=== PATIENT | female | born 1955 | race Caucasian/White ===

== ENCOUNTER 2017-02-03 07:48 | Inpatient (IN) | payer BC ==
[2017-02-03] MEDS ORDERED: Ondansetron INJ* 2 MG/ML VIAL IV PRN (18:21)
[2017-02-03] MEDS: NS 0.9% w/ 20 Meq KCL 1000 ML* 1,000 ML IV SCH ×2 (18:47→20:05)
[2017-02-03 19:00] LABS: Hematocrit 44 % (35-47); Hemoglobin 14.7 g/dl (12.0-16.0); Mean Corpuscular HGB Conc 34 g/dl (31-36); Mean Corpuscular Hemoglobin 31 pg (27-31); Mean Corpuscular Volume 92 fL (80-97); Mean Platelet Volume 9 um3 (7.4-10.4); Red Blood Count 4.77 10^6/ul (4.0-5.4); Red Cell Distribution Width 12 % (10.5-15); White Blood Count 8.1 10^3/ul (3.5-10.8)
[2017-02-03 19:04] LABS: Albumin 3.7 g/dL (3.2-5.2); BUN/Creatinine Ratio 11.4 (8-20); C Reactive Protein 128.39 mg/L (< 5.00); Calcium 9.3 mg/dL (8.6-10.3); EGFR African American 110.1 (>60); EGFR Non-African American 85.6 (>60); Globulin 3.1 g/dL (2-4); Magnesium 2.1 mg/dL (1.9-2.7); Phosphorus 2.1 mg/dL (2.5-5.0); Total Bilirubin 0.3 mg/dL (0.2-1.0); Total Protein 6.8 g/dL (6.4-8.9)
[2017-02-03] MEDS: Ziprasidone * 20 MG CAP (generic Geodon) PO SCH (20:59)
[2017-02-03] MEDS: lamoTRIgine TAB(*) 100 MG PO SCH (20:59)
[2017-02-03] MEDS: Cetirizine* 10 MG TAB PO SCH (20:59)
[2017-02-03] MEDS: Liothyronine TAB* 5 MCG PO SCH (20:59)
[2017-02-04] MEDS: NS 0.9% w/ 40 Meq KCL 1000 ML* 1,000 ML IV SCH ×4 (01:19→19:16)
--- NOTE | 2017-02-04 02:18 | HP ---
HISTORY AND PHYSICAL: DATE OF ADMISSION: 02/03/17 HISTORY OF PRESENT ILLNESS: Angie Hernandez is a 61-year-old woman admitted with nausea, vomiting, diarrhea, probable viral gastroenteritis with weakness, and inability to take her usual medications. The patient was in her usual state of health until about 48 hours ago when she developed diarrhea and nausea. Yesterday morning, she started to vomit. She vomited about 4 times. She had tried to drink Gatorade, but it made her throw up. She has been drinking diet coke, but it has only had about 16 ounces total. She has only eaten about 5 saltine crackers today. She feels extremely weak. She feels similar to how she felt when she was admitted with a similar illness in 2008. She has not been urinating much. She has been having liquid stools about every half hour. At first they were brown, now they are green. She has abdominal pain, which she rates at 3/10 in the lower abdomen. She has been unable to keep down her medications except for her thyroid medication. She is being admitted at this time. PAST MEDICAL HISTORY: Significant for the following medical problems: 1. Thyroid disease. She had lymphocytic thyroiditis following childbirth in 1989. At that time, she had carpal tunnel syndrome and depression , which resolved. In 1994, she developed Graves disease while on lithium for bipolar illness. She was treated with radioactive iodine after which she developed hypothyroidism. She is on replacement therapy with Synthroid and liothyronine. 2. History of bipolar disorder starting with depression on 1997 after going off control pills. She then had a severe depression treated with ECT. She had recurrent ECT treatments in 1995 and in 2006. She has been diagnosed as having bipolar type 2 disorder without psychotic features, which is treated with medications as noted below. Dr. Jordan is her psychiatrist. She has been able to titrate off some of her medications recently. 3. History of asthma, which has been in remission since she has gone on allergy shots. 4. Allergic rhinitis, for which she is on immunotherapy. 5. History of low B12 level. PAST SURGICAL HISTORY: 1. Spigelian hernia repair x4. 2. Inguinal hernia repair x1. 3. Tonsillectomy. 4. Basal cell cancer excised from the neck. 5. D and C. 6. . CURRENT MEDICATIONS: 1. Ziprasidone 60 mg in the evening and 20 mg in the morning. 2. Lamictal 100 mg 3 tablets daily; 1 in the morning and 2 at night. 3. Synthroid 125 mcg daily, SIRENA. 4. Liothyronine 5 mcg twice daily. 6. Zyrtec 10 mg at bedtime. 7. Centrum silver 1 tablet every day. 8. Wellbutrin XL 150 mg 24-hour tablet extended release 3 tablets every day. ALLERGIES: AUGMENTIN caused facial swelling and rash, BIAXIN caused rash, PARNATE caused orthostatic blood pressure, and QUINOLONES caused confusion. FAMILY HISTORY: Positive for thyroid disease, bipolar disease, asthma, depression, and osteoporosis. SOCIAL AND PERSONAL HISTORY: The patient is . She lives alone. 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 She has an adult daughter who lives in [facility]. REVIEW OF SYSTEMS: General: She had been feeling quite well until the present illness. She had been away on vacation until 2 days before she got sick visiting her mother in [place]. With the present illness, she has been unable to eat much. She has lost a few pounds. She denied fevers, but has not taken her temperature. She has not slept well. Skin: Negative. HEENT: Negative. Nodes: Negative. Heme: Negative. Breast: History of galactorrhea in the past, not recent. Endocrine: See above. Respiratory: See above. Cardiovascular: Questionable history of mitral valve prolapse. GI: See above. : See above. S[employer]IOR [employer]OR [employer]: She is menopausal for the past approximately 10 years. Musculoskeletal: Negative. Neurologic: Generally weak. Psychiatric: See above. PHYSICAL EXAMINATION VITAL SIGNS: Blood pressure 100/60, pulse 60, respirations 16, and temperature 97.9. Orthostatic blood pressures were done and she did not have an orthostatic drop, 100/60 sitting, 100/70 standing, and 104/60 standing after 2 minutes. GENERAL: She is a middle-aged woman, well developed, well nourished, appearing weak and uncomfortable. SKIN: Clammy and cool. HEENT: Atraumatic, normocephalic. Mouth and pharynx shows slightly dry mucous membranes. NECK: Supple. Neck without thyromegaly. CHEST: Clear. HEART: Normal S1, S2. There are no murmurs, gallops, or rubs. ABDOMEN: Soft with mild bilateral lower quadrant tenderness without rebound or guarding. Bowel sounds are hyperactive. EXTREMITIES: Without cyanosis, clubbing, or edema. NEUROLOGIC: Without gross focal or lateralizing signs. DIAGNOSTIC STUDIES/LAB DATA: CBC: WBC 8.1; H and H 14.7/44; MCV 92; and PLT 192,000. Chemistries: Sodium 136, potassium 3.0, chloride 100, CO2 27, BUN/ creatinine 8/0.70, magnesium 2.1, and phosphorus slightly low at 2.1. Rest of the comprehensive metabolic panel was normal. Procalcitonin normal at 0.1. C- reactive protein elevated at 128.39. IMPRESSION: The patient with volume depletion, hypokalemia due to viral gastroenteritis. I believe she needs IV fluids. She will be a full code. Her labs will be followed. Her CRP should come down. I do not think she has got a bacterial infection, but this is quite a high CRP. I will supplement her potassium. I advanced her diet as tolerated. Labs are ordered for the morning. I do not believe she needs DVT prophylaxis and shall be ambulatory and hopefully go home tomorrow once she is rehydrated. [id number]/CPS #: [id number] [facility]
[2017-02-04] MEDS: Levothyroxine TAB* 125 MCG TAB PO SCH (05:28)
[2017-02-04 05:40] LABS: Hematocrit 36 % (35-47); Hemoglobin 12.1 g/dl (12.0-16.0); Mean Corpuscular HGB Conc 34 g/dl (31-36); Mean Corpuscular Hemoglobin 31 pg (27-31); Mean Corpuscular Volume 93 fL (80-97); Mean Platelet Volume 9 um3 (7.4-10.4); Red Blood Count 3.87 10^6/ul (4.0-5.4); Red Cell Distribution Width 13 % (10.5-15); White Blood Count 6.6 10^3/ul (3.5-10.8)
[2017-02-04 05:53] LABS: BUN/Creatinine Ratio 13.8 (8-20); C Reactive Protein 73.63 mg/L (< 5.00); Calcium 7.8 mg/dL (8.6-10.3); EGFR African American 136.8 (>60); EGFR Non-African American 106.4 (>60); Potassium 3.5 mmol/L (3.5-5.0)
[2017-02-04] MEDS ORDERED: NS 0.9% 250 ML* 250 ML IV ONE (06:00)
[2017-02-04] MEDS: BuPROPion XL* 150 MG TAB.XL PO SCH (08:52)
[2017-02-04] MEDS: lamoTRIgine TAB(*) 100 MG PO SCH ×2 (08:52→20:21)
[2017-02-04] MEDS: Ziprasidone * 20 MG CAP (generic Geodon) PO SCH ×2 (08:52→20:21)
[2017-02-04] MEDS: Liothyronine TAB* 5 MCG PO SCH ×2 (08:52→20:20)
--- NOTE | 2017-02-04 12:24 | PN ---
Subjective - Subjective Reason for Note: Progress Note History: I reviewed the history of her presentation with Dr. Karis Mathews when she signed out. I also discussed it with the patient. She has nausea, vomiting and diarrhea. She works at the [employer] and hence may have contracted gastroenteritis there. She has no history of recent travel or doubtful diet. Today she continues to be hypotensive, has some nausea, but no vomiting. She has had x 4 liquid bowel movements. She feels she is improving but is not yet fully recovered. Active Problems: Active Problems Gastroenteritis (Acute) K52.9 Asthma (Chronic) J45.909 Bipolar affective disorder (Chronic) Hypothyroidism following radioiodine therapy (Chronic) E89.0 Current Medications: Current Medications Bupropion HCl (Wellbutrin Xl *) 450 mg PO DAILY [facility] Last Admin: 02/04/17 08:52 Dose: 450 mg Cetirizine HCl (Zyrtec*) 10 mg PO BEDTIME [facility] Last Admin: 02/03/17 20:59 Dose: 10 mg Potassium Chloride/Sodium Chloride (Ns 0.9% W/ 40 Meq Kcl 1000 Ml*) 1,000 mls @ 150 mls/hr IV PER RATE [facility] Last Admin: 02/04/17 08:52 Dose: 150 mls/hr Lamotrigine (Lamictal Tab(*)) 100 mg PO QAM [facility] Last Admin: 02/04/17 08:52 Dose: 100 mg Lamotrigine (Lamictal Tab(*)) 200 mg PO 2100 [facility] Last Admin: 02/03/17 20:59 Dose: 200 mg Levothyroxine Sodium (Synthroid Tab*) 125 mcg PO DAILY@0600 [facility] Last Admin: 02/04/17 05:28 Dose: 125 mcg Liothyronine Sodium (Cytomel Tab*) 5 mcg PO BID [facility] Last Admin: 02/04/17 08:52 Dose: 5 mcg Ondansetron HCl (Zofran Inj*) 4 mg IV Q4H PRN PRN Reason: NAUSEA Ziprasidone (Geodon (Generic) *) 20 mg PO DAILY [facility] Last Admin: 02/04/17 08:52 Dose: 20 mg Ziprasidone (Geodon (Generic) *) 60 mg PO BEDTIME [facility] Last Admin: 02/03/17 20:59 Dose: 60 mg - Review of Systems Constitutional Symptoms: No: Fever, Night Sweats Dermatology: Rash: No Eyes: Negative: Change in Vision Pulmonary: Negative: Cough, Sputum, Respiratory Distress, Shortness of Breath Cardiology: Negative: Chest Pain, Shortness of Breath, Palpitations, Swelling of Ankles Gastroenterology: Positive: Abdominal Pain - crampy lower, Nausea, Anorexia, Diarrhea Negative: Vomiting Neurology: Negative: Headache, Change in Vision Home Medications: Home Medications Medication Instructions Recorded Confirmed Type Geodon CAP* 20 mg PO DAILY 06/21/13 02/03/17 History Lamictal TAB(*) 100 mg PO DAILY 06/21/13 02/03/17 History Synthroid 125 mcg PO DAILY 06/21/13 02/03/17 History Wellbutrin TAB* 450 mg PO DAILY 06/21/13 02/03/17 History Cetirizine* [ZyrTEC 10 MG TAB*] 10 mg PO DAILY 02/03/17 02/03/17 History Liothyronine TAB* [Cytomel TAB*] 5 mcg PO BID 02/03/17 02/03/17 History Multiple Vitamins W/ Minerals 1 tab PO DAILY 02/03/17 02/03/17 History [Centrum] Ziprasidone HCl [Geodon] 60 mg PO BEDTIME 02/03/17 02/03/17 History lamoTRIgine TAB(*) [LaMICtal 200 mg PO BEDTIME 02/03/17 02/03/17 History TAB(*)] Allergies: Allergies Allergy/AdvReac Type Severity Reaction Status Date / Time Amoxicillin [From Augmentin] Allergy Rash Verified 02/03/17 18:19 Clarithromycin [From Biaxin] Allergy Rash Verified 02/03/17 18:19 Clavulanic Acid Allergy Rash Verified 02/03/17 18:19 [From Augmentin] Levofloxacin [From Levaquin] Allergy Altered Verified 02/03/17 18:19 Mental Status Objective - Vital Signs Vital Signs: Vital Signs 02/03/17 02/03/17 02/03/17 18:09 23:02 23:19 Temperature 98.2 F 98.4 F Pulse Rate 88 75 Respiratory 16 20 Rate Blood Pressure 111/68 81/42 113/62 (mmHg) O2 Sat by Pulse 100 98 Oximetry 02/04/17 02/04/17 02/04/17 04:34 04:51 07:15 Temperature 98.1 F 97.1 F Pulse Rate 79 81 Respiratory 18 Rate Blood Pressure 87/60 84/46 78/49 (mmHg) O2 Sat by Pulse 98 97 Oximetry 02/04/17 07:33 Temperature Pulse Rate 83 Respiratory 16 Rate Blood Pressure 93/56 (mmHg) O2 Sat by Pulse Oximetry - Intake and Output Intake and Output: Intake & Output 02/02/17 02/03/17 02/04/17 02/05/17 11:59 11:59 11:59 11:59 Intake Total 2536 Output Total 0 Balance 2536 Weight 134 lb Intake: IV Fluids 2316 NS (0.9%) 250 NS (0.9%) 20 meq KCL 490 NS (0.9%) 40 meq KCL 1090 Oral 220 Output: Urine 0 Other: # Bowel Movements 6 Estimated Stool Amount Medium ADLs: Meal Record Start: 02/03/17 18: 09 Freq: DAILY@0900,1400,1800 Status: Active Created 02/03/17 18:09 System (Rec: 02/03/17 18:09 System MED-C12) Document 02/04/17 09:00 [id number] (Rec: 02/04/17 09:51 [id number] MED-C11) Intake and Output Start: 02/03/17 18: 09 Freq: DAILY@0600,1400,2200 Status: Active Created 02/03/17 18:09 System (Rec: 02/03/17 18:09 System MED-C12) Document 02/03/17 21:48 [id number] (Rec: 02/03/17 21:48 [id number] MED-C14) Document 02/04/17 06:00 [id number] (Rec: 02/04/17 06:14 [id number] MED-C13) - Physical Exam General Physical Exam Comment: She looks dry and weak General: No Cyanosis, No Anemia, No Jaundice, No Clubbing Eye Exam: right: EOMI Skin: Normal: Rash, Lesions Lungs and Chest: Yes: Chest Expansion Full, Chest Expansion Symetrica, Percussion Note Resonant, Vessicular Breath Sounds. No: Crackles, Wheezes, Respiratory Distress, Use of Accessory Muscles Heart Rate and Rhythm: Tachycardia JVP: Not Elevated Additional Cardiovascular: Yes: Normal Heart Sounds. No: Heart Murmur, Pedal Edema Abdominal Exam: Yes: Distention - slight, Soft, Abdominal Tenderness - mild lower abdo, Bowel Sounds Present. No: Rigidity, Abdominal Mass, Hepatomegaly, Guarding, Rebound Tenderness, Abnormal Bruit Results - Results Lab Results: Laboratory Results - last 24 hr 02/03/17 02/03/17 02/03/17 18:40 18:40 18:40 WBC 8.1 RBC 4.77 Hgb 14.7 Hct 44 MCV 92 MCH 31 MCHC 34 RDW 12 Plt Count 193 MPV 9 Sodium 136 Potassium 3.0 L Chloride 100 L Carbon Dioxide 27 Anion Gap 9 BUN 8 Creatinine 0.70 Est GFR ( Amer) 110.1 Est GFR (Non-Af Amer) 85.6 BUN/Creatinine Ratio 11.4 Glucose 91 Calcium 9.3 Phosphorus 2.1 L Magnesium 2.1 Total Bilirubin 0.30 AST 21 ALT 14 Alkaline Phosphatase 48 C-Reactive Protein 128.39 H Total Protein 6.8 Albumin 3.7 Globulin 3.1 Albumin/Globulin Ratio 1.2 Lipase 16 Procalcitonin 0.1 02/04/17 02/04/17 05:22 05:22 WBC 6.6 RBC 3.87 L Hgb 12.1 Hct 36 MCV 93 MCH 31 MCHC 34 RDW 13 Plt Count 158 MPV 9 Sodium 139 Potassium 3.5 Chloride 111 Carbon Dioxide 21 L Anion Gap 7 BUN 8 Creatinine 0.58 Est GFR ( Amer) 136.8 Est GFR (Non-Af Amer) 106.4 BUN/Creatinine Ratio 13.8 Glucose 73 Calcium 7.8 L Phosphorus Magnesium Total Bilirubin AST ALT Alkaline Phosphatase C-Reactive Protein 73.63 H Total Protein Albumin Globulin Albumin/Globulin Ratio Lipase Procalcitonin Assessment - Problem List Assessment: Patient Problems Gastroenteritis (Acute) Asthma (Chronic) Bipolar affective disorder (Chronic) Hypothyroidism following radioiodine therapy (Chronic) Plan: Gastroenteritis (Acute) She has continued nausea, hypotension/hypovolemia, diarrhea. She requires acute hospital observation until tomorrow morning as she is clinically improving. I will maintain IVF and antiemetics. She will restart her usual medication and I will progress her diet prn Asthma (Chronic) not exacerbated Bipolar affective disorder (Chronic) She needs to resume/keep down these medication Hypothyroidism following radioiodine therapy (Chronic) resume this medication I discussed this plan with the patient and she agrees to the management plan
[2017-02-04] MEDS: Cetirizine* 10 MG TAB PO SCH (20:21)
[2017-02-05] MEDS: Levothyroxine TAB* 125 MCG TAB PO SCH (05:35)
[2017-02-05 07:33] VITALS: BP 88/60
[2017-02-05] MEDS: NS 0.9% w/ 40 Meq KCL 1000 ML* 1,000 ML IV SCH (08:48)
[2017-02-05] MEDS: Liothyronine TAB* 5 MCG PO SCH (09:21)
[2017-02-05] MEDS: BuPROPion XL* 150 MG TAB.XL PO SCH (09:21)
[2017-02-05] MEDS: Ziprasidone * 20 MG CAP (generic Geodon) PO SCH (09:22)
[2017-02-05] MEDS: lamoTRIgine TAB(*) 100 MG PO SCH (09:22)
--- NOTE | 2017-02-05 10:37 | PN ---
Subjective - Subjective Reason for Note: Discharge Note History: See dictated dischartge summary She is better. No BM since yesterday, kept down a normal b'fast Active Problems: Active Problems Gastroenteritis (Acute) K52.9 Asthma (Chronic) J45.909 Bipolar affective disorder (Chronic) Hypothyroidism following radioiodine therapy (Chronic) E89.0 Current Medications: Current Medications Bupropion HCl (Wellbutrin Xl *) 450 mg PO DAILY [facility] Last Admin: 02/05/17 09:21 Dose: 450 mg Cetirizine HCl (Zyrtec*) 10 mg PO BEDTIME [facility] Last Admin: 02/04/17 20:21 Dose: 10 mg Potassium Chloride/Sodium Chloride (Ns 0.9% W/ 40 Meq Kcl 1000 Ml*) 1,000 mls @ 75 mls/hr IV PER RATE [facility] Last Admin: 02/05/17 08:48 Dose: 75 mls/hr Lamotrigine (Lamictal Tab(*)) 100 mg PO QAM [facility] Last Admin: 02/05/17 09:22 Dose: 100 mg Lamotrigine (Lamictal Tab(*)) 200 mg PO 2100 [facility] Last Admin: 02/04/17 20:21 Dose: 200 mg Levothyroxine Sodium (Synthroid Tab*) 125 mcg PO DAILY@0600 [facility] Last Admin: 02/05/17 05:35 Dose: 125 mcg Liothyronine Sodium (Cytomel Tab*) 5 mcg PO BID [facility] Last Admin: 02/05/17 09:21 Dose: 5 mcg Ondansetron HCl (Zofran Inj*) 4 mg IV Q4H PRN PRN Reason: NAUSEA Ziprasidone (Geodon (Generic) *) 20 mg PO DAILY [facility] Last Admin: 02/05/17 09:22 Dose: 20 mg Ziprasidone (Geodon (Generic) *) 60 mg PO BEDTIME [facility] Last Admin: 02/04/17 20:21 Dose: 60 mg Home Medications: Home Medications Medication Instructions Recorded Confirmed Type Geodon CAP* 20 mg PO DAILY 06/21/13 02/03/17 History Lamictal TAB(*) 100 mg PO DAILY 06/21/13 02/03/17 History Synthroid 125 mcg PO DAILY 06/21/13 02/03/17 History Wellbutrin TAB* 450 mg PO DAILY 06/21/13 02/03/17 History Cetirizine* [ZyrTEC 10 MG TAB*] 10 mg PO DAILY 02/03/17 02/03/17 History Liothyronine TAB* [Cytomel TAB*] 5 mcg PO BID 02/03/17 02/03/17 History Multiple Vitamins W/ Minerals 1 tab PO DAILY 02/03/17 02/03/17 History [Centrum] Ziprasidone HCl [Geodon] 60 mg PO BEDTIME 02/03/17 02/03/17 History lamoTRIgine TAB(*) [Lamictal 200 mg PO BEDTIME 02/03/17 02/03/17 History TAB(*)] Allergies: Allergies Allergy/AdvReac Type Severity Reaction Status Date / Time Amoxicillin [From Augmentin] Allergy Rash Verified 02/03/17 18:19 Clarithromycin [From Biaxin] Allergy Rash Verified 02/03/17 18:19 Clavulanic Acid Allergy Rash Verified 02/03/17 18:19 [From Augmentin] Levofloxacin [From Levaquin] Allergy Altered Verified 02/03/17 18:19 Mental Status Objective - Vital Signs Vital Signs: Vital Signs 02/04/17 02/04/17 02/04/17 11:07 15:29 19:35 Temperature 98.3 F 98.3 F 98.5 F Pulse Rate 83 75 84 Respiratory 16 16 20 Rate Blood Pressure 94/61 87/50 88/54 (mmHg) O2 Sat by Pulse 97 98 99 Oximetry 02/05/17 02/05/17 02/05/17 01:14 07:18 08:08 Temperature 99.0 F 98.4 F Pulse Rate 89 90 Respiratory 16 18 16 Rate Blood Pressure 99/62 88/60 (mmHg) O2 Sat by Pulse 100 99 Oximetry - Intake and Output Intake and Output: Intake & Output 02/02/17 02/03/17 02/04/17 02/05/17 11:59 11:59 11:59 11:59 Intake Total 2536 5729 Output Total 0 1550 Balance 2536 8819 Weight 134 lb Intake: IV Fluids 2315 2008 NS (0.9%) 250 NS (0.9%) 20 meq KCL 490 NS (0.9%) 40 meq KCL 1090 2008 Oral 220 3720 Output: Urine 0 1550 Other: Estimated Void Medium # Bowel Movements 6 0 Estimated Stool Amount Medium # Voids 2 ADLs: Meal Record Start: 02/03/17 18: 09 Freq: DAILY@0900,1400,1800 Status: Active Created 02/03/17 18:09 System (Rec: 02/03/17 18:09 System MED-C12) Document 02/04/17 09:00 [id number] (Rec: 02/04/17 09:51 [id number] MED-C11) Document 02/04/17 14:00 [id number] (Rec: 02/04/17 14:45 [id number] MED-C11) Document 02/04/17 18:00 [id number] (Rec: 02/04/17 22:36 [id number] MED-C11) Document 02/05/17 09:00 [id number] (Rec: 02/05/17 09:50 [id number] MED-C11) Intake and Output Start: 02/03/17 18: 09 Freq: DAILY@0600,1400,2200 Status: Active Created 02/03/17 18:09 System (Rec: 02/03/17 18:09 System MED-C12) Document 02/03/17 21:48 [id number] (Rec: 02/03/17 21:48 [id number] MED-C14) Document 02/04/17 06:00 [id number] (Rec: 02/04/17 06:14 [id number] MED-C13) Document 02/04/17 14:00 [id number] (Rec: 02/04/17 14:45 [id number] MED-C11) Document 02/04/17 22:00 [id number] (Rec: 02/04/17 22:37 [id number] MED-C11) Document 02/05/17 05:38 [id number] (Rec: 02/05/17 05:38 [id number] MED-M12) Document 02/05/17 06:00 [id number] (Rec: 02/05/17 06:42 [id number] MED-C42) - Physical Exam General: No Cyanosis, No Anemia, No Jaundice, No Clubbing Lungs and Chest: Yes: Chest Expansion Full, Chest Expansion Symetrica, Percussion Note Resonant, Vessicular Breath Sounds. No: Crackles, Wheezes, Respiratory Distress, Use of Accessory Muscles Heart Rate and Rhythm: Regular Additional Cardiovascular: Yes: Normal Heart Sounds. No: Heart Murmur, Pedal Edema Abdominal Exam: Yes: Soft, Bowel Sounds Present. No: Distention, Abdominal Mass , Abdominal Tenderness Assessment - Problem List Assessment: Patient Problems Gastroenteritis (Acute) Asthma (Chronic) Bipolar affective disorder (Chronic) Hypothyroidism following radioiodine therapy (Chronic) Plan: She is recovered and I have discharged her home on her usual Rx. She will follow up with Dr. Camelia Mathews's office.
--- NOTE | 2017-02-06 03:54 | DS ---
DISCHARGE SUMMARY: DATE OF ADMISSION: 02/03/17 DATE OF DISCHARGE: 02/05/17 DISCHARGE DIAGNOSES: Acute gastroenteritis with nausea, vomiting, diarrhea, and dehydration. SECONDARY DIAGNOSES: 1. Asthma. 2. Bipolar affective disorder. 3. Primary hypothyroidism following radioiodine. HISTORY: Angie Hernandez is a 61-year-old white female. Her presentation is documented in Dr. Karis Mathews's detailed admitting history and hospital which is part of the electronic medical record. She presented with a 48-hour history of nausea, vomiting, and diarrhea. She has had no travel history. She works at the [employer] and hence has many potential contact. She developed cramping lower abdominal pain, unable to keep down her medications. She was admitted by Dr. Karis Mathews. PHYSICAL EXAMINATION: Temperature was 97.9, blood pressure 100/60, pulse 60. She had orthostatic blood pressures, sitting 100/60, standing 100/70, standing after 2 minutes 104/60. Abdominal Examination: Soft, bilateral lower quadrant tenderness without rebound or guarding. Bowel sounds hyperactive. Rest of her examination was normal. INITIAL INVESTIGATIONS: CBC: White count 8.1, hemoglobin 14.7, hematocrit 44, MCV 92, platelets 192. Chemistry: Sodium 136, potassium 3, chloride 100, bicarbonate 27, creatinine 0.7, BUN 8, magnesium 2.1, procalcitonin 0.1. CRP 128.39. INITIAL IMPRESSION: Volume depletion, hypokalemia, viral gastroenteritis. She was managed by admission IV fluids, antiemetics. INVESTIGATIONS: She had no other major investigations; however, on February 04, her white count was 6.6. Chemistry showed normal electrolytes aside from her calcium at 7.8. Her CRP came down to 73.63. HOSPITAL COURSE: I saw her on rounds on 02/04/17. She continued to have some mild nausea, had not been vomiting, had already had 4 liquid bowel movements at morning and has still continued to have cramping lower abdominal pain, did not feel ready to go home. Physical examination: Mildly distended belly, hyperactive bowel sounds. On the day of discharge, she is completely better. She has had breakfast. She has kept it down. She has had no further abdominal pain, no bowel movements for 24 hours. No fevers or sweats. Physical examination on day of discharge: Temperature 98.4, pulse 90, respirations 18, oxygen saturation 99%, blood pressure 88/60. ASSESSMENT AND PLAN: 1. Viral gastroenteritis, she has recovered. I note that she remains hypotensive. I will add a cortisol to ensure that we have not uncovered adrenal insufficiency, but otherwise she is not symptomatically orthostatic and feels ready to go home. I have instructed her on having a bland diet for a couple of days and to rest. She will follow up with Dr. Karis Mathews. 2. Bipolar affective disorder. She has managed to keep her medications down this morning. 3. Primary hypothyroidism. She is keeping that down. 4. Asthma. This is not exacerbated. DISCHARGE MEDICATIONS: No new prescriptions. 1. Lamictal 100 mg daily. 2. Wellbutrin 450 mg extended release daily. 3. Levothyroxine 125 mcg a day. 4. Geodon 20 mg daily. 5. Multivitamin 1 a day. 6. Cetirizine 10 mg as needed for asthma/allergies. 7. Liothyronine 5 mcg twice daily. 8. Lamotrigine 200 mg at bedtime. 9. Ziprasidone 60 mg at bedtime. DISCHARGE FOLLOWUP: She will follow up with Dr. Karis Mathews. CC: Dr. Karis Mathews* [id number]/CPS #: [id number] [facility]
== END 2017-02-05 11:30 | disposition home or self-care (01) | DRG 249 ==
LOC: MED 07:48 → OBSVTOIN 02-04 07:48 → INTOOBSV 02-05 07:48
PROVIDERS: ADMIT Internal Medicine Geriatric Medicine; ATTEND Internal Medicine
DX: A08.4 Viral intestinal infection, unspecified (principal); I95.9 Hypotension, unspecified; E86.0 Dehydration; E87.6 Hypokalemia; F31.9 Bipolar disorder, unspecified; E03.8 Other specified hypothyroidism; J45.909 Unspecified asthma, uncomplicated; J30.9 Allergic rhinitis, unspecified; Z85.828 Personal history of other malignant neoplasm of skin; Z79.899 Other long term (current) drug therapy; Z88.1 Allergy status to other antibiotic agents; Z81.8 Family history of other mental and behavioral disorders; Z82.5 Family history of asthma and other chronic lower respiratory diseases; Z83.49 Family history of other endocrine, nutritional and metabolic diseases
CPT/HCPCS: 36415; 80048; 80053; 82088; 82533; 83690; 83735; 84100; 84145; 85027; 86140; A9270-GY

== ENCOUNTER 2019-10-07 08:22 | Day surgery (SDC) | payer BC ==
[~2019-10-07 08:22] MED LIST: Acetaminophen TAB* 325 MG PO PRN
[2019-10-07] MEDS ORDERED: Midazolam* 1 MG/ML 2 ML VIAL (2 MG) ONE ×2 (10:08→10:24)
[2019-10-07 10:55] VITALS: BP 97/59
--- NOTE | 2019-10-07 21:05 | OP ---
OPERATIVE REPORT: DATE OF OPERATION: 10/07/19 - [facility] DATE OF : 59 SURGEON: Quentin Hidalgo MD ANESTHESIOLOGIST: Halley Fletcher DO ANESTHESIA: Monitored anesthesia care. PREOPERATIVE DIAGNOSIS: Cataract, right eye. POSTOPERATIVE DIAGNOSIS: Cataract, right eye. OPERATIVE PROCEDURE: Extracapsular cataract extraction of the right eye with intraocular lens implant. IMPLANT: SN60WF 19.0 diopter lens to the right eye. COMPLICATIONS: None. DESCRIPTION OF PROCEDURE: The patient was given phenylephrine 2.5 % and cyclopentolate 1% eye drops to the operative eye in the preoperative area. The patient was taken to the operating room where a time-out was taken to identify the correct patient, site, and side of surgery. The patient's right eye was prepped and draped in the usual sterile fashion with 5% Betadine. A second time- out was taken to verify the correct patient, side, and site of surgery, as well as the correct lens implant. A lid speculum was placed to the right eye. A 1 mm paracentesis blade was used to make a clear corneal incision. Preservative-free 1% lidocaine was injected into the anterior chamber. DisCoVisc was then injected into the anterior chamber. A 2.75 mm keratome blade was used to make a triplanar incision. A cystotome initiated a capsulorrhexis, which was completed with Utrata forceps in a continuous and curvilinear manner. Hydrodissection of the lens was performed with BSS on a cannula. The lens could be spun in a capsular bag. The phacoemulsification handpiece was used with a divide-and- conquer technique to remove the nucleus. The I/A handpiece then removed the residual cortical lens material. DisCoVisc was injected to inflate the capsular bag. The planned SN60WF 19.0 diopter lens was injected into the capsular bag. The residual DisCoVisc was removed from the eye with the I/A handpiece. The corneal incisions were hydrated and no leaks occurred at physiologic pressure around 20 mmHg per palpation. The lid speculum was removed and drapes were removed. Maxitrol ointment was placed to the surface of the operative eye. An adhesive patch and shield was then placed on the operative eye. The patient was taken to the postoperative area in stable condition. [id number]/[facility] #: [id number] [facility]
== END 2019-10-07 11:03 | disposition home or self-care (01) ==
LOC: OREAST 08:22
PROVIDERS: ATTEND Student in an Organized Health Care Education/Training Program
DX: H25.11 Age-related nuclear cataract, right eye (principal); H40.053 Ocular hypertension, bilateral; J45.909 Unspecified asthma, uncomplicated; F32.9 Major depressive disorder, single episode, unspecified; E03.9 Hypothyroidism, unspecified; Z88.1 Allergy status to other antibiotic agents
CPT/HCPCS: J2250; V2632